=== PATIENT | female | born 1980 | race Caucasian/White ===

== ENCOUNTER 2018-04-06 19:24 | Emergency (ER) | payer SELFPAY ==
--- NOTE | 2018-04-06 20:59 | RAD ---
PA AND LATERAL OF THE CHEST: 04/06/18 INDICATION: 37-year-old female with two weeks of cough and congestion. IMPRESSION: No pneumonia demonstrated. COMMENTS: The examination is compared to prior dated August 30, 2016. No consolidation, pleural effusion or pneumothorax is evident. Heart size and pulmonary vasculature a re normal appearing. No acute osseous abnormality is demonstrated. POS: [facility]
== END 2018-04-06 20:45 | disposition home or self-care (01) ==
LOC: SCSER 19:24
DX: J06.9 Acute upper respiratory infection, unspecified (principal); Z87.891 Personal history of nicotine dependence; Z79.899 Other long term (current) drug therapy
CPT/HCPCS: 71046

== ENCOUNTER 2019-05-07 12:57 | Emergency (ER) | payer SELFPAY ==
--- NOTE | 2019-05-07 13:23 | RAD ---
EXAM: XR Toe(s) Rt Min 2 View PROVIDED CLINICAL HISTORY: Pain status post injury COMPARISON: None FINDINGS: Nondisplaced potentially intra-articular fracture involving the base of the second digit distal phala nx. IMPRESSION: As above.
[2019-05-07] MEDS ORDERED: Acetaminophen 500 MG TAB ONE (13:34)
== END 2019-05-07 13:50 | disposition home or self-care (01) ==
LOC: SCSER 12:57
DX: S92.534A Nondisplaced fracture of distal phalanx of right lesser toe(s), initial encounter for closed fracture (principal); F17.210 Nicotine dependence, cigarettes, uncomplicated; W01.0XXA Fall on same level from slipping, tripping and stumbling without subsequent striking against object, initial encounter; Y93.6A Activity, physical games generally associated with school recess, summer camp and children

== ENCOUNTER 2019-05-10 17:06 | Emergency (ER) | payer SELFPAY | END 2019-05-10 17:34 | disposition home or self-care (01) | LOC: SCSER 17:06 | DX: S90.121A Contusion of right lesser toe(s) without damage to nail, initial encounter (principal); R11.2 Nausea with vomiting, unspecified; R50.9 Fever, unspecified; F17.210 Nicotine dependence, cigarettes, uncomplicated; X58.XXXA Exposure to other specified factors, initial encounter | CPT/HCPCS: 99283 ==

== ENCOUNTER 2019-07-05 18:06 | Emergency (ER) | payer SELFPAY ==
[2019-07-05] MEDS ORDERED: Clindamycin 150 MG CAP ONE (19:12)
[2019-07-05] MEDS ORDERED: Ketorolac Tromethamine 60 MG/2 ML VIAL ONE (19:12)
== END 2019-07-05 19:32 | disposition home or self-care (01) ==
LOC: SCSER 18:06
DX: K04.7 Periapical abscess without sinus (principal); K03.2 Erosion of teeth; F17.210 Nicotine dependence, cigarettes, uncomplicated
CPT/HCPCS: 96372; 99282; J1885